=== PATIENT | female | born 1940 | race Caucasian/White ===

== ENCOUNTER 2017-09-23 12:43 | Day surgery (SDC) | payer MEDICARE, BC ==
[2017-09-22 08:52] VITALS: BMI 24.2
[~2017-09-23 12:43] MED LIST: Cyclopentolate 1% Opth Drop 2 ML BOT FS SCH; EPINEPHrine 0.3 MG in Ophthalmic Irrigation Solution 500 ML FS SCH; Phenylephrine 2.5% Ophth Soln 5 ML BOT FS SCH
[2017-09-23] MEDS ORDERED: Phenylephrine 2.5% Ophth Soln 5 ML BOT ONE (13:46)
[2017-09-23] MEDS ORDERED: Cyclopentolate 1% Opth Drop 2 ML BOT ONE (13:46)
[2017-09-23] MEDS ORDERED: Ondansetron HCl/PF 4 MG/2 ML Vial ONE ×2 (14:36→14:45)
[2017-09-23] MEDS ORDERED: Fentanyl 100 MCG/2 ML VIAL ONE (14:36)
[2017-09-23] MEDS ORDERED: Diprivan 20 ML ONE (14:36)
[2017-09-23] MEDS ORDERED: Midazolam HCl 2 mg/2 ml Vial ONE (14:36)
[2017-09-23] MEDS ORDERED: Lidocaine 2% MPF 10 ML AMP (For Epidural Use) ONE (14:45)
[2017-09-23] MEDS ORDERED: Propofol 200 MG/20 ML VIAL ONE (14:45)
--- NOTE | 2017-09-23 19:10 | OP ---
DATE OF PROCEDURE: 09/23/2017 PREOPERATIVE DIAGNOSIS: Vitreous opacification, dislocated intraocular lens, left eye. POSTOPERATIVE DIAGNOSIS: Vitreous opacification, dislocated intraocular lens, left eye. PROCEDURE PERFORMED: Pars plana vitrectomy, repositioning of intraocular lens with suture, left eye . SURGEON: Jesse Newman M.D. ANESTHESIA: General endotracheal anesthesia. COMPLICATIONS: None. PROCEDURE IN DETAIL: The patient was identified in the preoperative holding area. Appropriate info rmed consent for the planned surgical procedure on the left eye had been obtained. The patient was transported to the operative suite where appropriate cardiopulmonary monitoring was established. Lo zita anesthesia was obtained using retrobulbar and modified Van Lint lid block using 50/50 mixture of 4% lidocaine and 0.75% bupivacaine. The patient was prepped and draped in the usual sterile manner for ophthalmic surgery on the left eye. Lid speculum was placed in the left eye. The 25-gauge tro cars were placed in conjunctiva and sclera supratemporally, inferotemporally, and supranasally. Inf usion line was placed inferotemporally. Light pipe and vitreous cutter were inserted into the eye. Core of vitrectomy was performed. Special attention was taken to the anterior vitreous, which was cleared from lens surfaces. The lens was then positioned into the anterior chamber. Lens was tethe red superiorly prevented centering of the lens. One single suture was placed through the iris and a round the inferior haptic. The superior conjunctiva was then explored revealing the externalized benjamin ptic superiorly. This was repositioned back into the eye itself. The optic was centered in the pup il and the superior haptic was sutured to the iris. Both sutures were tied internal to the eye and trimmed using internal end-gripping scissors. The haptic was then repositioned in the posterior sandor mber and noted to be centered. Prophylactic laser was placed behind the sclerotomy sites. Trocars were removed. Eye was noted to retain pressure well. A single 6-0 plain gut suture was placed at t he superior conjunctival peritomy site. Subconjunctival Ancef was placed and antibiotic ointment wa s placed, and the eye was patched and shielded. The patient was taken to the postoperative recovery unit in good condition having suffered no immediate perioperative complications. DISCHARGE INSTRUCTIONS: The patient was instructed to keep patch and shield on, avoid lifting or be nding, avoid rubbing the eye and follow up in the morning with Dr. Newman.
--- OUTSIDE RECORDS SUMMARY | 2017-09-24 15:50 | XMS | Continuity of Care Document ---
:1940 Author Organization [facility] Care Team Providers Name Role Phone Carola Oneill Primary Care Physician Unavailable Insurance Providers Payer Name Policy Number Subscriber Name Relationship MEDICARE [id number] JOSSUE GOMEZ SELF/SAME PATIENT [facility] [id number] MAYA GOMEZ Advance Directives Directive Response Recorded Date/Time Advance Directive? N 02/19/17 3:26pm Living Will? N 02/19/17 3:26pm Health Care Proxy? N 02/19/17 3:26pm Healthcare Power of Physician Representative? N 02/19/17 3:26pm Is the patient an Organ Donor? N 02/19/17 3:26pm Problems Active Medical Problems Problem Onset Date Recorded Date Status Pneumonia Unknown 08/09/16 Active Hypoxemia Unknown 08/09/16 Active Hyponatremia Unknown 08/10/16 Active CAD (coronary artery disease) Unknown 08/10/16 Active Pacemaker Unknown 08/10/16 Active HBP (high blood pressure) Unknown 08/10/16 Active HLD (hyperlipidemia) Unknown 08/10/16 Active Medications Current Home Medications Medication Dose Units Route Directions Days/Qty Instructions Start Date Calcium Carbonate 600 MG PO TWICE A DAY (Calcium) 600 MG (899; 2099) TAB Carvedilol (COREG 25 MG PO TWICE A DAY 25 MG TAB) 25 MG (899; 2099) TAB Clopidogrel 75 MG PO EVERY DAY @ 0900 Bisulfate (Plavix) 75 MG TAB Cyclosporine 1 DROP OP TWICE A DAY (Restasis) 2 (00; 2099) DROP/0.4 ML DROP Isosorbide 60 MG PO EVERY DAY @ 0900 Mononitrate (Imdur) 60 MG TAB Levothyroxine 88 MCG PO EVERY DAY @ 0900 Sodium (SYNTHROID 0.88 MG TAB) 88 MCG TAB Echo-3 Fatty Acids 1,000 MG PO TWICE A DAY (OMEGA 3 1,000 MG (00; 2100) CAP) 1,000 MG CAP Rivaroxaban 20 MG PO EVERY DAY @ 0900 (Xarelto) 20 MG TAB TELMISARTAN 40 MG PO EVERY DAY @ 0900 (TELMISARTAN 40 MG TAB) 40 MG TAB Tolterodine 2 MG PO DAILY HOUR OF Tartrate (DETROL 2 SLEEP MG TAB) 2 MG TAB Past Home Medications Medication Directions Ordered Status Amiodarone 200MG (Cordarone 200 Mg EVERY DAY @ 0900 Unknown Discontinued Tab) 200 Mg Tab Tab, 200 Mg Po Amiodarone 200MG (Cordarone 200 Mg Unknown Discontinued Tab) 200 Mg Tab Tab, 200 Mg Or Amlodipine Besylate (Norvasc 5 Mg EVERY DAY @ 0900 Unknown Discontinued Tab) 5 Mg Tab Tab, 5 Mg Or Atorvastatin Calcium (Lipitor 40 Mg EVERY DAY @ 0900 Unknown Discontinued Tab) 40 Mg Tab Tab, 40 Mg Po Atorvastatin Calcium (Lipitor 40 Mg AT BEDTIME (2099) Unknown Discontinued Tab) 40 Mg Tab Tab, 40 Mg Po Atorvastatin Calcium (Lipitor) 40 Mg EVERY DAY @ 0900 Unknown Discontinued Tab Tab, 40 Mg Po Calcium Carbonate-Vitamin D (Calcium TWICE A DAY (899; 2099) Unknown Discontinued 600 + D) 600 Mg Tab Tab, 1 Or Carvedilol (Carvedilol 12.5 Mg Tab) TWICE A DAY (00; 2099) Unknown Discontinued 12.5 Mg Tab Tab, 12.5 Mg Po Carvedilol (Coreg) 6.25 Mg Tab Tab, 2 X A DAY Unknown Discontinued 6.25 Mg Or Clonidine Hydrochloride (Clonidine THREE TIME A DAY(;15;) Unknown Discontinued 0.1 Mg Tab) 0.1 Mg Tab Tab, 0.1 Mg PRN HYPERTENSION Po Clopidogrel Bisulfate (Plavix 75 Mg EVERY DAY @ 0900 Unknown Discontinued Tab) 75 Mg Tab Tab, 75 Mg Or Estradiol (Vivelle-Dot) 0.05 Mg Dis Q 4 DAYS Unknown Discontinued Dis, 0.05 Mg Td Furosemide (Lasix 20 Mg Tab) 20 Mg PRN DYSURIA Unknown Discontinued Tab Tab, 20 Mg Or Furosemide (Lasix 20 Mg Tab) 20 Mg EVERY DAY @ 0900 Unknown Discontinued Tab Tab, 20 Mg Or Hydrochlorothiazide W/Triamter EVERY DAY @ 0900 Unknown Discontinued (Triamterene/Hydrochlorothiazide) 37.5 Mg/25 Mg Tab Tab, 1 Tab Po Hydrocodone-Acetaminophen (Nova 7.5 EVERY SIX HOURS NEEDED Unknown Discontinued Mg/325 Mg Tab) 7.5 Mg/325 Mg Tab PRN PAIN Tab, 1 Tab Po Lisinopril (Lisinopril 10 Mg Tab) 10 TWICE A DAY (899; 2099) Unknown Discontinued Mg Tab Tab, 10 Mg Po Lisinopril (Zestril 30 Mg) 30 Mg Tab EVERY DAY @ 0900 Unknown Discontinued Tab, 30 Mg Po Levothyroxine Sodium (Levothyroxin) EVERY DAY @ 0900 Unknown Discontinued 88 Mcg Tab Tab, 88 Mcg Or Lisinopril (Zestril 10MG) 10 Mg Tab TWICE A DAY (899; 2099) Unknown Discontinued Tab, 10 Mg Po Multiple Vitamin (Multivitamin) Tab EVERY DAY @ 0900 Unknown Discontinued Tab, 1 Or Multiple Vitamins W/ Minerals (Mult EVERY DAY @ 0900 Unknown Discontinued Vitamin) Tab Tab, 1 Po Rivaroxaban (Xarelto) 20 Mg Tab Tab, AT BEDTIME (2099) Unknown Discontinued 20 Mg Or Social History Problem Response Recorded Date Recreational drugs? N 08/10/16 Alcohol? N 08/10/16 Query Response Start Date Stop Date Smoking Status: Never Smoker Hospital Discharge Instructions No hospital discharge instructions. Plan of Care No plan of care. Functional Status No functional status results. Allergies, Adverse Reactions, Alerts Allergen Type Severity Reaction Status Last Updated Amiodarone AdvReac Severe RESPIRATORY DISTRESS POSSIBLY RELATED Active TO AMIODARONE Immunizations No Known History of Immunizations. Vital Signs Vital Reading Collection Date/Time Result Respiratory Rate 08/19/16 10:00am 20 Results No known relevant diagnostic tests, laboratory data and/or discharge summary. Procedures No Known History of Procedures. Encounters Encounter Location Arrival/Admit Date Discharge/Depart Date Attending Provider Discharged [place] 01/22/17 3:48pm 02/19/17 3:26pm [facility] Discharged [place] 01/22/17 3:48pm 02/19/17 3:26pm [facility] Discharged [place] 01/22/17 3:48pm 02/19/17 3:26pm [place], [facility] Discharged [place] 01/22/17 3:48pm 02/19/17 3:26pm [place], [facility] Discharged [place] 01/22/17 3:48pm 02/19/17 3:26pm [place], [facility] Discharged [place] 01/22/17 3:48pm 02/19/17 3:26pm [place], [facility] Discharged [place] 01/22/17 3:48pm 02/19/17 3:26pm [place], [facility] Discharged [place] 01/22/17 3:48pm 02/19/17 3:26pm [place], [facility] Discharged [place] 12/23/16 4:41pm 01/19/17 4:24pm [place], [facility] Discharged [place] 12/23/16 4:41pm 01/19/17 4:24pm [place], [facility] Discharged [place] 12/23/16 4:41pm 01/19/17 4:24pm [place], [facility] Discharged [place] 12/23/16 4:41pm 01/19/17 4:24pm [place], [facility] Discharged [place] 12/23/16 4:41pm 01/19/17 4:24pm [place], [facility] Discharged [place] 12/23/16 4:41pm 01/19/17 4:24pm [place], [facility] Discharged [place] 12/23/16 4:41pm 01/19/17 4:24pm [place], [facility] Discharged [place] 12/23/16 4:41pm 01/19/17 4:24pm [place], [facility] Discharged [place] 12/23/16 4:41pm 01/19/17 4:24pm [place], [facility] Registered [place] 12/28/16 11:06am [place], [facility] Discharged [place] 12/23/16 4:41pm 01/19/17 4:24pm [place], [facility] Discharged [place] 12/23/16 4:41pm 01/19/17 4:24pm [place], [facility] Discharged [place] 11/25/16 2:03pm 12/22/16 4:39pm [place], [facility] Discharged [place] 11/25/16 2:03pm 12/22/16 4:39pm [place], [facility] Discharged [place] 11/25/16 2:03pm 12/22/16 4:39pm [place], [facility] Discharged [place] 11/25/16 2:03pm 12/22/16 4:39pm [place] Discharged [place] 11/25/16 2:03pm 12/22/16 4:39pm [place], [facility] Discharged [place] 11/25/16 2:03pm 12/22/16 4:39pm [place], [facility] Discharged [place] 11/25/16 2:03pm 12/22/16 4:39pm [place], [facility] Discharged [place] 11/25/16 2:03pm 12/22/16 4:39pm [place], [facility] Discharged [place] 11/25/16 2:03pm 12/22/16 4:39pm [place], [facility] Discharged [place] 11/25/16 2:03pm 12/22/16 4:39pm [place], [facility] Discharged [place] 11/25/16 2:03pm 12/22/16 4:39pm [place], [facility] Discharged [place] 11/25/16 2:03pm 12/22/[facility] [place] Diagnosis Onset Date Pneumonia Hypoxemia Hyponatremia CAD (coronary artery disease) Pacemaker HBP (high blood pressure) HLD (hyperlipidemia)
--- OUTSIDE RECORDS SUMMARY | 2017-09-24 15:50 | XMS | Continuity of Care Document ---
:[address] [facility] Care Team Providers Name Role Phone Mai Carola Primary Care Physician Unavailable Insurance Providers Payer Name Policy Number Subscriber Name Relationship MEDICARE [id number] JOSSUE GOMEZ SELF/SAME PATIENT [facility] [id number] MAYA GOMEZ Advance Directives Directive Response Recorded Date/Time Advance Directive? N 08/10/16 8:23am Living Will? N 08/10/16 8:23am Health Care Proxy? N 08/10/16 8:23am Healthcare Power of Settlement Technician? N 08/10/16 8:23am Is the patient an Organ Donor? N 08/09/16 9:31pm Chief Complaint and Reason for Visit Reason for Visit HYPOXEMIA,PNEUMONIA Problems Active Medical Problems Problem Onset Date [...] PO TWICE A DAY (Calcium) 600 MG (0900; 2099) TAB Carvedilol (COREG 25 MG PO TWICE A DAY 25 MG TAB) 25 MG (00; 2099) TAB Clopidogrel 75 MG PO EVERY DAY @ 0900 Bisulfate (Plavix) 75 MG TAB Cyclosporine 1 DROP OP TWICE A DAY (Restasis) 2 (899; 2099) DROP/0.4 ML DROP Isosorbide 60 MG PO EVERY DAY @ 0900 Mononitrate (Imdur) 60 MG TAB Levothyroxine 88 MCG PO EVERY DAY @ 0900 Sodium (Synthroid 88 Mcg) 88 MCG TAB [place]-3 Fatty Acids 1,000 MG PO TWICE A DAY (OMEGA 3 1,000 MG (899; 2099) CAP) 1,000 MG CAP Rivaroxaban 20 MG PO EVERY DAY @ 0900 (Xarelto) 20 MG TAB TELMISARTAN 40 MG 40 MG PO EVERY DAY @ 0900 TAB Tolterodine 2 MG PO DAILY HOUR [...] Calcium Carbonate-Vitamin D (Calcium TWICE A DAY (00; 2099) Unknown Discontinued 600 + D) 600 Mg Tab Tab, 1 Or Carvedilol (Carvedilol 12.5 Mg Tab) TWICE A DAY (899; 2099) Unknown Discontinued 12.5 Mg Tab Tab, [...] Mg Tab Tab, 1 Tab Po Hydrocodone-Acetaminophen ([place] 7.5 EVERY SIX HOURS NEEDED Unknown Discontinued Mg/325 Mg Tab) 7.5 Mg/325 Mg Tab PRN PAIN Tab, 1 Tab Po Lisinopril (Lisinopril 10 Mg Tab) 10 TWICE A DAY (09; 2099) Unknown Discontinued Mg Tab Tab, 10 [...] No hospital discharge instructions. Plan of Care Discharge Date 08/17/16 Disposition OTHER ACUTE CARE FACILITY Prescriptions See Medications Section Functional Status Query Response Date Recorded Speech Pattern: Intubated August 12, 2016 7:30pm Seizure Act.? N August 13, 2016 9:00am RUE Strength: Weak August 13, 2016 9:00am LUE Strength: Weak August 13, 2016 9:00am RLE Strength: Weak August 13, 2016 9:00am LLE Strength: Weak August 13, 2016 9:00am WNL?+ Y August 17, 2016 8:00am Person: N August 13, 2016 9:00am Place: N August 13, 2016 9:00am Time: N August 13, 2016 9:00am Situation: N August 13, 2016 9:00am LOC: Sedated August 13, 2016 9:00am Allergies, Adverse Reactions, Alerts Allergen Type Severity Reaction Status Last Updated Amiodarone AdvReac Severe RESPIRATORY DISTRESS POSSIBLY RELATED Active TO AMIODARONE Immunizations No Known History of Immunizations. Vital Signs Vital Reading Collection Date/Time Result Blood Pressure 08/17/16 6:00pm 132/61 Blood Pressure Source 08/17/16 6:00pm Auto Cuff Patient Temperature 08/17/16 4:00pm 97.7 Temperature Source 08/17/16 4:00pm Oral Respiratory Rate 08/17/16 6:00pm 26 Pulse Rate 08/17/16 6:00pm 62 Pulse Location 08/17/16 6:00pm Monitor Bedside Pulse Oximetry 08/17/16 6:00pm 89 Height 08/17/16 3:41pm 170.18 cm Height 08/17/16 3:41pm 5 ft 7.00 in Weight 08/17/16 3:41pm 71.300 kg Weight 08/17/16 3:41pm 157 lb 3.03 oz Body Mass Index 08/17/16 3:41pm 24.6 Results Laboratory Results Test Name Result Units Flags Reference Collection Result Comments Date/Time Date/Time Glucose 313 mg/dL H 70-109 08/17/16 08/17/16 (Fingerstick 12:20pm 6:36pm ) White Blood 12.9 K/uL H 4.8-10.8 08/17/16 08/17/16 Count 3:30am 4:05am Red Blood 3.58 M/uL L 3.70-5.40 08/17/16 08/17/16 Count 3:30am 4:05am Hemoglobin 12.4 g/dL 12.0-16.0 08/17/16 08/17/16 3:30am 4:05am Hematocrit 36.2 % L 37.0-47.0 08/17/16 08/17/16 3:30am 4:05am Mean 101.3 fl H 80.0-100.0 08/17/16 08/17/16 Corpuscular 3:30am 4:05am Volume Mean 34.6 pg H 27.0-31.0 08/17/16 08/17/16 Corpuscular 3:30am 4:05am Hemoglobin Mean 34.2 g/dL 32.0-36.0 08/17/16 08/17/16 Corpuscular 3:30am 4:05am Hgb Concent Diff Red Cell 14.1 % 11.5-14.5 08/17/16 08/17/16 Distribution 3:30am 4:05am Width Platelet 274 K/uL 130-400 08/17/16 08/17/16 Count 3:30am 4:05am Mean 8.4 fl 08/17/16 08/17/16 Platelet 3:30am 4:05am Volume Granulocytes 94.3 % H 50.0-75.0 08/17/16 08/17/16 (%) 3:30am 4:05am Lymphocytes 3.0 % L 20.0-40.0 08/17/16 08/17/16 % 3:30am 4:05am Monocytes % 2.4 % 0.0-15.0 08/17/16 08/17/16 3:30am 4:05am Eosinophils 0.0 % 0.0-10.0 08/17/16 08/17/16 % 3:30am 4:05am Basophils % 0.3 % 0.0-2.0 08/17/16 08/17/16 3:30am 4:05am Granulocytes 12.2 K/uL H 1.8-6.4 08/17/16 08/17/16 # 3:30am 4:05am Lymphocytes 0.4 K/uL L 1.2-3.6 08/17/16 08/17/16 # 3:30am 4:05am Monocytes # 0.3 K/uL 0.3-0.9 08/17/16 08/17/16 3:30am 4:05am Eosinophils 0.0 K/ul 0.0-0.5 08/17/16 08/17/16 # 3:30am 4:05am BASO # 0.0 K/uL 0.0-0.2 08/17/16 08/17/16 3:30am 4:05am Manual YES 08/17/16 08/17/16 Differential 3:30am 4:05am Segmented 95 % H 42-75 08/17/16 08/17/16 Neutrophils 3:30am 5:28am Band 1 % L 2-10 08/17/16 08/17/16 Neutrophils 3:30am 5:28am Lymphocytes 2 % L 20-51 08/17/16 08/17/16 3:30am 5:28am Monocytes 2 % 2-9 08/17/16 08/17/16 3:30am 5:28am Platelet ADEQUATE ADEQUATE 08/17/16 08/17/16 Estimate 3:30am 5:28am Platelet LARGE NORMAL 08/17/16 08/17/16 Morphology PLATELETS 3:30am 5:28am SEEN Normal RBC SEE NORMAL 08/17/16 08/17/16 Morphology MORPHOLOGY 3:30am 5:28am Poikilocytos 1+ A NONE 08/17/16 08/17/16 is 3:30am 5:28am Anisocytosis 1+ A NONE 08/17/16 08/17/16 3:30am 5:28am Sodium Level 139 mmol/L 135-144 08/17/16 08/17/16 3:30am 4:15am Potassium 3.5 mmol/L 3.5-5.1 08/17/16 08/17/16 Level 3:30am 4:15am Chloride 98 mmol/L L 101-111 08/17/16 08/17/16 Level 3:30am 4:15am Carbon 33 mmol/L H 22-32 08/17/16 08/17/16 Dioxide 3:30am 4:15am Level Anion Gap 11.5 mmol/L 10-20 08/17/16 08/17/16 3:30am 4:15am Glucose 233 mg/dL H 70-109 08/17/16 08/17/16 Random glucose > 200 mg/dL in a patient with typical Level 3:30am 4:15am symptoms of diabetes (polydipsia, polyuria and unexplained weight loss) satisfies ADA criteria for diabetes mellitus if confirmed by repeat testing on another day. Confirmation is unnecessary when acute metabolic decompensation with hyperglycemia is manifested. Reference: Report of the Expert Committee on the Diagnosis and Classification of Diabetes Mellitus. Diabetes Care, 20:1183, 1997. Blood Urea 27 mg/dL H 8-26 08/17/16 08/17/16 Nitrogen 3:30am 4:15am Creatinine 0.90 mg/dL 0.44-1.00 08/17/16 08/17/16 3:30am 4:15am EGFR Note > 60.0 08/17/16 08/17/16 eGFR (Estimated Glomerular Filtration Rate) 3:30am 4:15am Reference Range: >60 ml/min/1.73m eGFR calculation value obtained using the [facility] Quadratic (MCQ) equation. The reportable reference range is recommended to be greater than 60 ml/min/1.73m. This is an estimation of the patient's GFR and clinical correlation is recommended. This eGFR calculation does not account for race. This result may differ from other equations available. Calcium 7.6 mg/dL L 8.9-10.3 08/17/16 08/17/16 Level 3:30am 4:15am Magnesium 2.1 mg/dL 1.8-2.5 08/17/16 08/17/16 Level 3:30am 4:15am Eosinophils 3 % 1-4 08/16/16 08/16/16 7:16am 9:36am Metamyelocyt 3 % H 0 08/16/16 08/16/16 es 7:16am 9:36am Phosphorus 3.4 mg/dL 2.5-4.6 08/16/16 08/16/16 Level 7:16am 8:19am Vancomycin 13 ug/mL 10-15 08/15/16 08/15/16 Level Trough 12:20pm 12:41pm Atypical 1 H NONE 08/15/16 08/15/16 Lymphocytes 3:40am 5:09am Hypochromasi 1+ A NONE 08/15/16 08/15/16 a 3:40am 5:09am Macrocytosis 1+ A NONE 08/15/16 08/15/16 3:40am 5:09am B-Type 307 pg/mL H 0-100 08/15/16 08/15/16 Natriuretic 3:40am 4:48am Peptide Random 11 ug/mL 08/14/16 08/14/16 Vancomycin 3:30am 8:35am Level Urine Negative Negative 08/12/16 08/16/16 [facility]formed [facility]: [facility] Legionella 6:45am 5:50pm [address], [place] [id number] pneumophilia Vehicle Maintenance Technician: Ulises Mendoza MD, Phone: [phone] Ag Aspergillus Negative Neg:<1:1 08/12/16 08/16/16 fumigatus 6:45am 5:50pm Antibody Aspergillus Negative Neg:<1:1 08/12/16 08/16/16 flavus 6:45am 5:50pm Antibody Aspergillus Negative Neg:<1:1 08/12/16 08/16/16 niger 6:45am 5:50pm Antibody Blastomyces Negative Neg:<1:1 08/12/16 08/16/16 Antibody 6:45am 5:50pm Coccidioides Negative Neg:<1:1 08/12/16 08/16/16 Antibody 6:45am 5:50pm Histoplasma Negative Neg:<1:1 08/12/16 08/16/16 Antibody 6:45am 5:50pm Albumin 2.2 g/dL L 3.5-5.0 08/12/16 08/12/16 3:43am 4:54am Total 0.5 mg/dL 0.3-1.2 08/12/16 08/12/16 Bilirubin 3:43am 4:54am Alkaline 56 IU/L 32-91 08/12/16 08/12/16 Phosphatase 3:43am 4:54am Total 5.5 g/dL L 6.5-8.1 08/12/16 08/12/16 Protein 3:43am 4:54am Alanine 34 IU/L 7-55 08/12/16 08/12/16 Aminotransfe 3:43am 4:54am rase (ALT/SGPT) Aspartate 33 IU/L 15-41 08/12/16 08/12/16 Amino Transf 3:43am 4:54am (AST/SGOT) Globulin 3.3 g/dL 2.3-3.5 08/12/16 08/12/16 3:43am 4:54am Albumin/Glob 1.0 L 1.2-2.2 08/12/16 08/12/16 ulin Ratio 3:43am 4:54am Erythrocyte 85 mm/hr H 0-30 08/11/16 08/11/16 Sedimentatio 1:25pm 6:02pm n Rate C-Reactive 33.0 MG/DL H 0.0-1.0 08/11/16 08/11/16 Protein 1:25pm 5:57pm N/A Negative Negative 08/11/16 08/12/16 Performed at: - [facility] [place] 1:25pm 3:27pm [address], [place] [id number] Vehicle Maintenance Technician: Андрей Hopson MD, Phone: [phone] Influenza NEGATIVE NEGATIVE 08/11/16 08/11/16 A negative test result should be interpreted as a Type A 12:35pm 1:33pm presumptive negative for the presense of influenza A Antigen antigen. Negative results can occur from inadequate sample collection or levels of antigen which fall below the limits of detection of the test. Influenza NEGATIVE NEGATIVE 08/11/16 08/11/16 Type B 12:35pm 1:33pm Antigen Respiratory Resp Virus Panel (RVP) PCR 08/11/16 08/17/16 Viral Panel Influenza A Negative Negative 6: 00pm 8:05am (PCR) Influenza B Negative Negative RSV A Negative Negative RSV B Negative Negative Parainfluenza 1 Negative Negative Parainfluenza 2 Negative Negative Parainfluenza 3 Negative Negative Rhinovirus Negative Negative Metapneumovirus Negative Negative Adenovirus Negative Negative [address] [facility] [address] [address] Dir: Ulises Mendoza MD For inquiries, the physician may contact Branch: [phone] Lab: [phone] Urine Color YELLOW YELLOW 08/10/16 08/10/16 5:00pm 5:22pm Urine CLEAR CLEAR 08/10/16 08/10/16 Appearance 5:00pm 5:22pm Urine 250 mg/dL A NEGATIVE 08/10/16 08/10/16 Glucose 5:00pm 5:22pm Urine NEGATIVE NEGATIVE 08/10/16 08/10/16 Bilirubin 5:00pm 5:22pm Urine TRACE A NEGATIVE 08/10/16 08/10/16 Ketones 5:00pm 5:22pm Urine 1.020 1.002-1.03 08/10/16 08/10/16 Specific 0 5:00pm 5:22pm [place] Urine Blood LARGE A NEGATIVE 08/10/16 08/10/16 5:00pm 5:22pm Urine pH 6.5 4.5-8.0 08/10/16 08/10/16 5:00pm 5:22pm Urine NEGATIVE mg/dL NEGATIVE 08/10/16 08/10/16 Protein 5:00pm 5:22pm Urine 1.0 E.U./dL 0.2 08/10/16 08/10/16 Urobilinogen 5:00pm 5:22pm Urine NEGATIVE NEGATIVE 08/10/16 08/10/16 Nitrite 5:00pm 5:22pm Urine NEGATIVE NEGATIVE 08/10/16 08/10/16 Leukocyte 5:00pm 5:22pm Esterase Urine YES NO 08/10/16 08/10/16 Microscopic 5:00pm 5:22pm Indicated Urine RBC 6-14 /hpf A 0-2 08/10/16 08/10/16 5:00pm 5:23pm Urine WBC NONE SEEN /hpf 0-2 08/10/16 08/10/16 5:00pm 5:23pm Urine 0-2 /hpf 0-2 08/10/16 08/10/16 Epithelial 5:00pm 5:23pm Cells Urine NEGATIVE /hpf NEG 08/10/16 08/10/16 Bacteria 5:00pm 5:23pm Urine Sodium 34 mmol/L 08/10/16 08/10/16 Published 5:00pm 5:30pm reference range is not available. Urine Uric 31.0 mg/dL 08/10/16 08/10/16 Published Acid 5:00pm 5:30pm reference range is not available. Urine 68.0 mmol/L 08/10/16 08/10/16 Published Chloride 5:00pm 5:30pm reference range is not available. Urine 50.70 mg/dL 08/10/16 08/10/16 Published Creatinine 5:00pm 5:30pm reference range is not available. Serum 265 L 280-301 08/10/16 08/12/16 INFCE Result Units: mOsmol/kg Osmolality 1:20pm 7:32am Performed at: - [facility] [address], [place], [place] [id number] Vehicle Maintenance Technician: ARMIDA Davis MD, Phone: [phone] Thyroid 3.37 uIU/mL 0.34-5.6 08/10/16 08/10/16 Stimulating 11:29am 12:24pm Hormone (TSH) Prothrombin 23.6 SECONDS H 10.0-12.9 08/09/16 08/09/16 Time 9:20pm 9:54pm INR 2.2 08/09/16 08/09/16 Internationa 9:20pm 9:54pm THE INR IS TO BE USED ONLY FOR MONITORING ORAL ANTICOAGULANT l Normalized THERAPY. Ratio INDICATION INR VALUE 1. Prophylaxis of venous thrombosis 2.0-3.0 (high-risk surgery) Treatment of venous thrombosis Treatment of PE Prevention of systemic embolism Tissue heart valves AMI (to prevent systemic embolism) Valvular heart disease Atrial fibrillation Bileaflet mechanical valve in aortic position 2. Mechanical prosthetic heart valves (high risk) 2.5-3.5 Thrombosis and Antiphospholipid syndrome Prevention of recurrent [facility] Sixth ACCP Consensus Conference on Antithrombotic Therapy, Chest 2001; 119:Supplement 8-21. Arterial 7.470 H 7.350-7.45 08/09/16 08/09/16 Blood pH 0 9:20pm 9:44pm Blood Gas 30.7 mmHg L 32.0-48.0 08/09/16 08/09/16 PCO2 9:20pm 9:44pm Blood Gas 22.2 mmol/l 20.0-24.0 08/09/16 08/09/16 HCO3 9:20pm 9:44pm Arterial 20.0 mmol/L L 21.0-25.0 08/09/16 08/09/16 Blood Total 9:20pm 9:44pm CO2 Blood Gas -1.0 mmol/L -2.0-2.0 08/09/16 08/09/16 Base Excess 9:20pm 9:44pm Blood Gas 63.0 mmHg L 83.0-108.0 08/09/16 08/09/16 PO2 9:20pm 9:44pm Arterial Bld 94.9 L 95.0-99.0 08/09/16 08/09/16 O2 9:20pm 9:44pm Saturation (Measur) [place] Test YES 08/09/16 08/09/16 9:20pm 9:44pm Blood Gas LEFT BRACHIAL 08/09/16 08/09/16 Puncture 9:20pm 9:44pm Site Creatine 174 IU/L 38-234 08/09/16 08/09/16 Kinase 9:20pm 10:16pm Lactic Acid 1.8 mmol/L 0.5-2.0 08/09/16 08/09/16 Level 9:20pm 10:05pm Creatine 3.6 ng/ML 0.6-6.3 08/09/16 08/09/16 Kinase MB 9:20pm 10:16pm Troponin I < 0.01 ng/mL 0.00-0.03 08/09/16 08/09/16 9:20pm 10:16pm Troponin I-Interpretation Reference : <0.03 ng/mL NEGATIVE 0.04 - 0.49 ng/mL EQUIVOCAL =OR > 0.5 ng/mL CONSISTENT WITH ACUTE MYOCARDIAL INJURY 98% of confirmed AMI patients will have at least one value in a set or serial specimens >0.50 ng/ml. 99% of normals are between 0.0 - 0.10 ng/ml. Serial samples on a patient that are all <0.10 ng/ml effectively rules out AMI. Persistently increased troponin I values that are above the upper limit of normal but below the threshold for AMI indicate mycardial injury but not necessarily an ischemic mechanism of injury. Troponin Important Points 1. Troponin is specific for myocardial injury but not for AMI. Elevated troponin levels above the upper limit of normal but below the AMI cutoff may be present in cardiac injury other then AMI and represent some degree of risk. 2. Elevated troponin levels inconsistent with patient history or clinical condition should be considered a sign to investigate for other cardiac conditions. 3. Serial sampling is critical for accurate diagnosis. Myoglobin 94 ug/mL H 14.3-65.8 08/09/16 08/09/16 9:20pm 10:16pm Creatinine 1.00 mg/dL 0.44-1.00 07/21/16 07/21/16 1:21pm 1:34pm EGFR Note > 60.0 07/21/16 07/21/16 eGFR (Estimated Glomerular Filtration Rate) 1:21pm 1:34pm Reference Range: >60 ml/min/1.73m eGFR calculation value obtained using the MDRD equation. The reportable reference ranges is recommended to be greater than 60 ml/min/1.73m. This is an estimation of the patient's GFR and clinical correlation is recommended. Microbiology Results Procedure Source Result Collection Date/Time Result Date/Time Blood Culture Blood NO GROWTH AT 5 DAYS. 08/09/16 9:30pm 08/15/16 6:59am Blood Culture Blood NO GROWTH AT 5 DAYS. 08/09/16 9:20pm 08/15/16 6:59am Procedures No Known History of Procedures. Encounters Encounter Location Arrival/Admit Date Discharge/Depart Date Attending Provider Discharged [place] 08/09/16 8:56pm 08/17/16 6:35pm [facility], Inpatient [facility] Discharged [place] 08/09/16 8:56pm 08/17/16 6:35pm Anne, Emergency [facility] Registered [place] 08/03/16 1:31pm Mai, [facility] Registered [place] 07/21/16 12:48pm [facility], [facility] Registered [place] 06/30/16 7:46am [facility], [facility] Encounter Diagnosis Onset Date Pneumonia Hypoxemia Hyponatremia CAD (coronary artery disease) Pacemaker HBP (high blood pressure) HLD (hyperlipidemia)
--- OUTSIDE RECORDS SUMMARY | 2017-09-24 15:50 | XMS | Continuity of Care Document ---
:1940 Author Organization [facility] Care Team Providers Name Role Phone Carola Oneill Primary Care Physician Unavailable Insurance Providers Payer Name Policy Number Subscriber Name Relationship MEDICARE [id number] JOSSUE GOMEZ SELF/SAME PATIENT [facility] [place] [id number] MAYA GOMEZ Advance Directives Directive Response Recorded Date/Time Advance Directive? N 12/22/16 4:39pm Living Will? N 12/22/16 4:39pm Health Care Proxy? N 12/22/16 4:39pm Healthcare Power of Operations Management Trainee? N 12/22/16 4:39pm Is the patient an Organ Donor? N 12/22/16 4:39pm Problems Active Medical Problems Problem Onset Date [...] (SYNTHROID 0.88 MG TAB) 88 MCG TAB [place]-3 Fatty Acids 1,000 MG PO TWICE A [...] Mg Tab Tab, 1 Tab Po Hydrocodone-Acetaminophen ([place] 7.5 EVERY SIX HOURS NEEDED Unknown Discontinued [...] Arrival/Admit Date Discharge/Depart Date Attending Provider Discharged [place] 11/25/16 2:03pm 12/22/16 4:39pm DEN[place], [facility] Discharged [place] 11/25/16 2:03pm 12/22/16 4:39pm [facility] Discharged [place] 11/25/16 2:03pm 12/22[facility]16 [facility] [place] 11[facility]25/16 2:03[facility] [place] 11/25/16 2:03pm 12/22[facility] [place] 11/25/16 2:03pm 12/22[facility] [place] 11/25/16 2:03pm 12/22/[facility] [place] 11/25/16 2:03pm [facility]/22[facility] [place] [facility]25[facility] 2:03[facility] [place] 11/25/16 2:03pm 12/22[facility] [place] 11/25/16 2:03pm 12/22[facility] [place] 11/25/16 2:03pm 12/22/16 4:39pm [facility] Registered [place] [facility] Encounter Diagnosis Onset Date Pneumonia Hypoxemia Hyponatremia CAD (coronary artery disease) Pacemaker HBP (high blood pressure) HLD (hyperlipidemia)
--- OUTSIDE RECORDS SUMMARY | 2017-09-24 15:50 | XMS | Continuity of Care Document ---
:1940 Author Organization [facility] Care Team Providers Name Role Phone Carola Oneill Primary Care Physician Unavailable Insurance Providers Payer Name Policy Number Subscriber Name Relationship MEDICARE [id number] JOSSUE GOMEZ SELF/SAME PATIENT [facility] [id number] MAYA GOMEZ Advance Directives Directive Response Recorded Date/Time Advance Directive? N 01/19/17 4:24pm Living Will? N 01/19/17 4:24pm Health Care Proxy? N 01/19/17 4:24pm Healthcare Power of Telemarketing Manager? N 01/19/17 4:24pm Is the patient an Organ Donor? N 01/19/17 4:24pm Problems Active Medical Problems Problem Onset Date [...] (SYNTHROID 0.88 MG TAB) 88 MCG TAB [place]-3 Fatty Acids 1,000 MG PO TWICE A [...] Mg Tab Tab, 1 Tab Po Hydrocodone-Acetaminophen ([place] 7.5 EVERY SIX HOURS NEEDED Unknown Discontinued [...] Arrival/Admit Date Discharge/Depart Date Attending Provider Discharged [place] 12/23/16 4:41pm 01/19/17 4:24pm DEN[place], [facility] Discharged [place] 12/23/16 4:41pm 01/19/17 4:24pm DENNY, [facility] Discharged [place] 12/23/16 4:41pm 01/19/17 4:24pm DENNY, [facility] Discharged [place] 12/23/16 4:41pm 01/19/17 4:24pm DENNY, [facility] Discharged [place] 12/23/16 4:41pm 01/19/17 4:24pm DENNY, [facility] Discharged [place] 12/23/16 4:41pm 01/19/17 4:24pm DENNY, [facility] Discharged [place] 12/23/16 4:41pm 01/19/17 4:24pm DENNY, [facility] Discharged [place] 12/23/16 4:41pm 01/19/17 4:24pm DENNY, [facility] Discharged [place] 12/23/16 4:41pm 01/19/17 4:24pm DENNY, [facility] Registered [place] 12/28/16 11:06am DENNY, [facility] Discharged [place] 12/23/16 4:41pm 01/19/17 4:24pm DENNY, [facility] Discharged [place] 12/23/16 4:41pm 01/19/17 4:24pm DENNY, [facility] Discharged [place] 11/25/16 2:03pm 12/22/16 4:39pm DENNY, [facility] Discharged [place] 11/25/16 2:03pm 12/22/16 4:39pm DENNY, [facility] Discharged [place] 11/25/16 2:03pm 12/22/16 4:39pm DENNY, [facility] Discharged [place] 11/25/16 2:03pm 12/22/16 4:39pm DENNY, [facility] Discharged [place] 11/25/16 2:03pm 12/22/16 4:39pm DENNY, [facility] Discharged [place] 11/25/16 2:03pm 12/22/16 4:39pm DENNY, [facility] Discharged [place] 11/25/16 2:03[facility] [place] 11/25/16 2:03pm 12/22/16 4:39pm [facility] Discharged [place] 11/25/16 2:03pm 12/22/16 4:39pm [facility] Discharged [place] 11/25/16 2:03pm 12/22/16 4:39pm [facility] Discharged [place] 11/25/16 2:03pm [facility]/22[facility] [place] 11/25/16 2:03pm 12/22/16 4:39pm [facility] Registered [place] [facility] Encounter Diagnosis Onset Date Pneumonia Hypoxemia Hyponatremia CAD (coronary artery disease) Pacemaker HBP (high blood pressure) HLD (hyperlipidemia)
--- OUTSIDE RECORDS SUMMARY | 2017-09-24 15:50 | XMS | Continuity of Care Document ---
:1940 Author Organization [facility] Care Team Providers Name Role Phone Mai Carola Primary Care Physician Unavailable Insurance Providers Payer Name Policy Number Subscriber Name Relationship MEDICARE [id number] JOSSUE GOMEZ SELF/SAME PATIENT [facility] [id number] MAYA GOMEZ Advance Directives Directive Response Recorded Date/Time Advance Directive? N 08/10/16 8:23am Living Will? N 08/10/16 8:23am Health Care Proxy? N 08/10/16 8:23am Healthcare Power of Section Housekeeper? N 08/10/16 8:23am Is the patient an [...] Sodium (Synthroid 88 Mcg) 88 MCG TAB [place]-3 Fatty Acids 1,000 MG PO TWICE A [...] Mg Tab Tab, 1 Tab Po Hydrocodone-Acetaminophen ([place] 7.5 EVERY SIX HOURS NEEDED Unknown Discontinued Mg/325 Mg Tab) 7.5 Mg/325 Mg Tab PRN PAIN Tab, 1 Tab Po Lisinopril (Lisinopril 10 Mg Tab) 10 TWICE A DAY (0900; 2099) Unknown Discontinued Mg Tab Tab, 10 [...] discharge instructions. Plan of Care Discharge Date 08/19/16 Disposition [facility] Prescriptions See Medications Section Functional Status Query Response Date Recorded Speech Pattern: Intubated August 12, 2016 7:30pm Seizure Act.? N August 13, 2016 9:00am RUE Strength: Weak August 13, 2016 9:00am LUE Strength: Weak August 13, 2016 9:00am RLE Strength: Weak August 13, 2016 9:00am LLE Strength: Weak August 13, 2016 9:00am WNL?+ Y August 19, 2016 9:00am Person: N August 13, 2016 9:00am Place: [...] Vital Reading Collection Date/Time Result Blood Pressure 08/19/16 10:00am 138/65 Blood Pressure Source 08/19/16 10:00am Auto Cuff Patient Temperature 08/19/16 8:00am 98.2 Temperature Source 08/19/16 8:00am Core Respiratory Rate 08/19/16 10:00am 20 Pulse Rate 08/19/16 10:00am 63 Pulse Location 08/19/16 10:00am Monitor Bedside Pulse Oximetry 08/19/16 10:00am 97 Height 08/17/16 3:41pm 170.18 cm Height 08/17/16 3:41pm 5 ft 7.00 in Weight 08/19/16 6:05am 72.574 kg Weight 08/19/16 6:05am 159 lb 15.99 oz Body Mass Index 08/17/16 3:41pm 25.1 Results Laboratory Results Test Name Result Units Flags Reference Collection Result Comments Date/Time Date/Time Glucose 198 mg/dL H 70-109 08/19/16 08/19/16 (Fingerstick 11:44am 11:46am ) White Blood 13.6 K/uL H 4.8-10.8 08/19/16 08/19/16 Count 3:20am 4:15am Red Blood 3.80 M/uL 3.70-5.40 08/19/16 08/19/16 Count 3:20am 4:15am Hemoglobin 13.0 g/dL 12.0-16.0 08/19/16 08/19/16 3:20am 4:15am Hematocrit 38.4 % 37.0-47.0 08/19/16 08/19/16 3:20am 4:15am Mean 101.0 fl H 80.0-100.0 08/19/16 08/19/16 Corpuscular 3:20am 4:15am Volume Mean 34.3 pg H 27.0-31.0 08/19/16 08/19/16 Corpuscular 3:20am 4:15am Hemoglobin Mean 33.9 g/dL 32.0-36.0 08/19/16 08/19/16 Corpuscular 3:20am 4:15am Hgb Concent Diff Red Cell 14.3 % 11.5-14.5 08/19/16 08/19/16 Distribution 3:20am 4:15am Width Platelet 258 K/uL 130-400 08/19/16 08/19/16 Count 3:20am 4:15am Mean 8.4 fl 08/19/16 08/19/16 Platelet 3:20am 4:15am Volume Granulocytes 95.8 % H 50.0-75.0 08/19/16 08/19/16 (%) 3:20am 4:15am Lymphocytes 2.0 % L 20.0-40.0 08/19/16 08/19/16 % 3:20am 4:15am Monocytes % 2.0 % 0.0-15.0 08/19/16 08/19/16 3:20am 4:15am Eosinophils 0.0 % 0.0-10.0 08/19/16 08/19/16 % 3:20am 4:15am Basophils % 0.2 % 0.0-2.0 08/19/16 08/19/16 3:20am 4:15am Granulocytes 13.1 K/uL H 1.8-6.4 08/19/16 08/19/16 # 3:20am 4:15am Lymphocytes 0.3 K/uL L 1.2-3.6 08/19/16 08/19/16 # 3:20am 4:15am Monocytes # 0.3 K/uL 0.3-0.9 08/19/16 08/19/16 3:20am 4:15am Eosinophils 0.0 K/ul 0.0-0.5 08/19/16 08/19/16 # 3:20am 4:15am BASO # 0.0 K/uL 0.0-0.2 08/19/16 08/19/16 3:20am 4:15am Manual YES 08/19/16 08/19/16 Differential 3:20am 4:15am Segmented 93 % H 42-75 08/19/16 08/19/16 Neutrophils 3:20am 4:58am Lymphocytes 3 % L 20-51 08/19/16 08/19/16 3:20am 4:58am Monocytes 2 % 2-9 08/19/16 08/19/16 3:20am 4:58am Eosinophils 1 % 1-4 08/19/16 08/19/16 3:20am 4:58am Atypical 1 H NONE 08/19/16 08/19/16 Lymphocytes 3:20am 4:58am Platelet ADEQUATE ADEQUATE 08/19/16 08/19/16 Estimate 3:20am 4:58am Platelet GIANT NORMAL 08/19/16 08/19/16 Morphology PLATELETS 3:20am 4:58am SEEN Normal RBC SEE NORMAL 08/19/16 08/19/16 Morphology MORPHOLOGY 3:20am 4:58am Hypochromasi 1+ A NONE 08/19/16 08/19/16 a 3:20am 4:58am Sodium Level 138 mmol/L 135-144 08/19/16 08/19/16 3:20am 4:16am Potassium 3.8 mmol/L 3.5-5.1 08/19/16 08/19/16 Level 3:20am 4:16am Chloride 98 mmol/L L 101-111 08/19/16 08/19/16 Level 3:20am 4:16am Carbon 32 mmol/L 22-32 08/19/16 08/19/16 Dioxide 3:20am 4:16am Level Anion Gap 11.8 mmol/L 10-20 08/19/16 08/19/16 3:20am 4:16am Glucose 247 mg/dL H 70-109 08/19/16 08/19/16 Random glucose > 200 mg/dL in a patient with typical Level 3:20am 4:16am symptoms of diabetes (polydipsia, polyuria and unexplained weight loss) satisfies ADA criteria for diabetes mellitus if confirmed by repeat testing on another day. Confirmation is unnecessary when acute metabolic decompensation with hyperglycemia is manifested. Reference: Report of the Expert Committee on the Diagnosis and Classification of Diabetes Mellitus. Diabetes Care, 20:1183, 1997. Blood Urea 27 mg/dL H 8-26 08/19/16 08/19/16 Nitrogen 3:20am 4:16am Creatinine 0.80 mg/dL 0.44-1.00 08/19/16 08/19/16 3:20am 4:16am EGFR Note > 60.0 08/19/16 08/19/16 eGFR (Estimated Glomerular Filtration Rate) 3:20am 4:16am Reference Range: >60 ml/min/1.73m eGFR calculation value obtained using the [facility] Quadratic (MCQ) equation. The reportable reference range is recommended to be greater than 60 ml/min/1.73m. This is an estimation of the patient's GFR and clinical correlation is recommended. This eGFR calculation does not account for race. This result may differ from other equations available. Calcium 7.7 mg/dL L 8.9-10.3 08/19/16 08/19/16 Level 3:20am 4:16am Vancomycin 16 ug/mL H 10-15 08/18/16 08/19/16 Level Trough 10:57pm 0:19am Band 1 % L 2-10 08/17/16 08/17/16 Neutrophils 3:30am 5:28am Poikilocytos 1+ A NONE 08/17/16 08/17/16 is 3:30am 5:28am Anisocytosis 1+ A NONE 08/17/16 08/17/16 3:30am 5:28am Magnesium 2.1 mg/dL 1.8-2.5 08/17/16 08/17/16 Level 3:30am 4:15am Metamyelocyt 3 % H 0 08/16/16 08/16/16 es 7:16am 9:36am Phosphorus 3.4 mg/dL 2.5-4.6 08/16/16 08/16/16 Level 7:16am 8:19am Macrocytosis 1+ A NONE 08/15/16 08/15/16 3:40am 5:09am B-Type 307 pg/mL H 0-100 08/15/16 08/15/16 Natriuretic 3:40am 4:48am Peptide Random 11 ug/mL 08/14/16 08/14/16 Vancomycin 3:30am 8:35am Level N/A Negative Negative 08/12/16 08/18/16 Performed at: [facility] - [facility] 6:45am 8:32am [address], [place] [id number] Lock Expert: Ulises Mendoza MD, Phone: [phone] Performed at: [facility] - [facility] [address] [id number] Lock Expert: Андрей Hopson MD, Phone: [phone] Urine Negative Negative 08/12/16 08/16/16 Performed at: - [facility] Legionella 6:45am 5:50pm [address], [place] [id number] pneumophilia Lock Expert: Ulises Mendoza MD, Phone: [phone] Ag Aspergillus Negative Neg:<1:1 08/12/16 08/16/16 fumigatus 6:45am 5:50pm Antibody Aspergillus Negative Neg:<1:1 08/12/16 08/16/16 flavus 6:45am 5:50pm Antibody Aspergillus Negative Neg:<1:1 08/12/16 08/16/16 niger 6:45am 5:50pm Antibody Blastomyces Negative Neg:<1:1 08/12/16 08/16/16 Antibody 6:45am 5:50pm Coccidioides Negative Neg:<1:1 08/12/16 08/16/16 Antibody 6:45am 5:50pm Histoplasma Negative Neg:<1:1 08/12/16 08/16/16 Antibody 6:45am 5:50pm Cytoplasmic <1:20 titer Neg:<1:20 08/12/16 08/18/16 ANCA 6:45am 8:32am (c-ANCA) Antibody Perinuclear <1:20 titer Neg:<1:20 08/12/16 08/18/16 The presence of positive fluorescence exhibiting P-ANCA or ANCA 6:45am 8:32am C-ANCA patterns alone is not specific for the diagnosis of (p-ANCA) Keith's Granulomatosis (WG) or microscopic polyangiitis. Antibody Decisions about treatment should not be based solely on ANCA IFA results. The International ANCA Group Consensus recommends follow up testing of positive sera with both GA- 3 and MPO-ANCA enzyme immunoassays. As many as 5% serum samples are positive only by EIA. Ref. AM J Clin Pathol 1999;111:507-513. Atypical <1:20 titer Neg:<1:20 08/12/16 08/18/16 The atypical pANCA pattern has been observed in a p-ANCA 6:45am 8:32am significant percentage of patients with ulcerative colitis, primary sclerosing cholangitis and autoimmune hepatitis. Albumin 2.2 g/dL L 3.5-5.0 08/12/16 08/12/16 [...] H 0.0-1.0 08/11/16 08/11/16 Protein 1:25pm 5:57pm Influenza NEGATIVE NEGATIVE 08/11/16 08/11/16 A negative [...] Metapneumovirus Negative Negative Adenovirus Negative Negative 01 BN [facility] [address], [place] [address] Dir: Ulises Mendoza MD For inquiries, the physician may contact Branch: [phone] Lab: [phone] Urine Color YELLOW YELLOW 08/10/16 08/10/16 5:00pm 5:22pm Urine CLEAR CLEAR 08/10/16 08/10/16 Appearance 5:00pm 5:22pm Urine 250 mg/dL A NEGATIVE 08/10/16 08/10/16 Glucose 5:00pm 5:22pm Urine NEGATIVE NEGATIVE 08/10/16 08/10/16 Bilirubin 5:00pm 5:22pm Urine TRACE A NEGATIVE 08/10/16 08/10/16 Ketones 5:00pm 5:22pm Urine 1.020 1.002-1.03 08/10/16 08/10/16 Specific 0 5:00pm 5:22pm [place] Urine Blood LARGE A NEGATIVE 08/10/16 08/10/16 [...] Units: mOsmol/kg Osmolality 1:20pm 7:32am Performed at: [facility] [address] [address], [place], [place] [id number] Lock Expert: ARMIDA Davis MD, Phone: [phone] Thyroid 3.37 uIU/mL 0.34-5.6 08/10/16 08/10/16 Stimulating [...] Thrombosis and Antiphospholipid syndrome Prevention of recurrent PA Sixth ACCP Consensus Conference on Antithrombotic Therapy, [...] Arrival/Admit Date Discharge/Depart Date Attending Provider Discharged Gila 08/09/16 8:56pm 08/19/16 11:57am [facility]patient [facility] Discharged Gila 08/09/16 8:56pm 08/19/16 11:57am [facility], Emergency [facility] Registered Gila 08/03/16 1:31pm [facility] Registered Gila 07/21/16 12:48pm [facility] Reg[facility] Gila 06/30/16 7:46am [facility] Encounter Diagnosis Onset Date Pneumonia Hypoxemia Hyponatremia CAD (coronary artery disease) Pacemaker HBP (high blood pressure) HLD (hyperlipidemia)
--- OUTSIDE RECORDS SUMMARY | 2017-09-24 15:50 | XMS | Continuity of Care Document ---
:1940 Author Organization [facility] Care Team Providers Name Role Phone Carola Oneill Primary Care Physician Unavailable Insurance Providers Payer Name Policy Number Subscriber Name Relationship MEDICARE [id number] JOSSUE GOMEZ SELF/SAME PATIENT [facility] [id number] MAYA GOMEZ Advance Directives Directive Response Recorded Date/Time Advance Directive? N 03/22/17 5:16pm Living Will? N 03/22/17 5:16pm Health Care Proxy? N 03/22/17 5:16pm Healthcare Power of Braid Cutter? N 03/22/17 5:16pm Is the patient an Organ Donor? N 03/22/17 5:16pm Problems Active Medical Problems Problem Onset Date [...] (SYNTHROID 0.88 MG TAB) 88 MCG TAB [place]-3 Fatty Acids 1,000 MG PO TWICE A [...] Mg Tab Tab, 1 Tab Po Hydrocodone-Acetaminophen ([place] 7.5 EVERY SIX HOURS NEEDED Unknown Discontinued [...] 10MG) 10 Mg Tab TWICE A DAY (00; 2099) Unknown Discontinued Tab, 10 Mg Po [...] Arrival/Admit Date Discharge/Depart Date Attending Provider Discharged Thurman 02/22/17 8:21am 03/19/17 1:24pm [facility] Discharged Thurman 02/22/17 8:21am 03/19/17 1:24pm [facility] Discharged Thurman 02/22/17 8:21am 03/19/17 1:24pm [place], [facility] Discharged Thurman 02/22/17 8:21am 03/19/17 1:24pm [facility], [facility] Discharged Thurman 02/22/17 8:21am 03/19/17 1:24pm [facility], [facility] Discharged Thurman 02/22/17 8:21am 03/19/17 1:24pm [facility], [facility] Discharged Thurman 01/22/17 3:48pm 02/19/17 3:26pm [facility], [facility] Discharged Thurman 01/22/17 3:48pm 02/19/17 3:26pm [facility], [facility] Discharged Thurman 01/22/17 3:48pm 02/19/17 3:26pm [facility], [facility] Discharged Thurman 01/22/17 3:48pm 02/19/17 3:26pm [place], [facility] Discharged Thurman 01/22/17 3:48pm 02/19/17 3:26pm [facility], [facility] Discharged Thurman 01/22/17 3:48pm 02/19/17 3:26pm [facility], [facility] Discharged Thurman 01/22/17 3:48pm 02/19/17 3:26pm [facility], [facility] Discharged Thurman 01/22/17 3:48pm 02/19/17 3:26pm [facility], [facility] Discharged Thurman 12/23/16 4:41pm 01/19/17 4:24pm [facility], [facility] Discharged Thurman 12/23/16 4:41pm 01/19/17 4:24pm [facility], [facility] Discharged Thurman 12/23/16 4:41pm 01/19/17 4:24pm [facility], [facility] Discharged Thurman 12/23/16 4:41pm 01/19/17 4:24pm [facility], [facility] Discharged Thurman 12/23/16 4:41pm 01/19/17 4:24pm [facility] [place] [place] [facility] Thurman 12/23/16 4:41pm 01/19/17 4:24pm [facility] [place] [place] Discharged Thurman 12/23/16 4:41pm 01/19/17 4:24pm [facility] Discharged Thurman 12/23/16 4:41pm 01/19/17 4:24pm [facility] Discharged Thurman 12/23/16 4:41pm 01/19/17 4:24pm [facility] Registered Thurman 12/28/16 11:06am [facility] Discharged Thurman 12/23/16 4:41pm 01/19/17 4:24pm [facility] [place] [place] Encounter Diagnosis Onset Date Pneumonia Hypoxemia Hyponatremia CAD (coronary artery disease) Pacemaker HBP (high blood pressure) HLD (hyperlipidemia)
== END 2017-09-23 17:54 | disposition home or self-care (01) ==
LOC: SDC 12:43
PROVIDERS: ATTEND Ophthalmology Retina Specialist
PROC: 08953ZZ Drainage of Left Vitreous, Percutaneous Approach (ICD-10-PCS; principal; 2017-09-23)
DX: H27.132 Posterior dislocation of lens, left eye (principal); H43.392 Other vitreous opacities, left eye; E89.0 Postprocedural hypothyroidism; Z95.5 Presence of coronary angioplasty implant and graft; Z88.8 Allergy status to other drugs, medicaments and biological substances; Z79.899 Other long term (current) drug therapy; Z96.653 Presence of artificial knee joint, bilateral; Z90.89 Acquired absence of other organs; Z90.710 Acquired absence of both cervix and uterus; Z98.890 Other specified postprocedural states
CPT/HCPCS: J0171; J2001; J2250; J2405; J2704; J3010

== ENCOUNTER 2019-02-03 22:24 | Observation (INO) | payer MEDICARE, BC ==
[~2019-02-03 22:24] MED LIST changes: -Cyclopentolate 1% Opth Drop 2 ML BOT FS SCH; -EPINEPHrine 0.3 MG in Ophthalmic Irrigation Solution 500 ML FS SCH; +ISOVUE-370 76%-LOCM 1 ML ONE; -Phenylephrine 2.5% Ophth Soln 5 ML BOT FS SCH
[2019-02-03 22:58] LABS: #Basophils 0.1 thou/uL (0.0-0.2); #Eosinphils 0.2 thou/uL (0.0-0.7); #Lymphocytes 1.8 thou/uL (1.20-3.40); #Monocytes 0.7 thou/uL (0.11-0.59); #Neutrophils 3.5 thou/uL (1.40-6.50); %Basophils 1.3 % (0.0-1.0); %Eosinophils 3.7 % (0.0-10.0); %Lymphocytes 28.3 % (21.0-51.0); %Monocytes 11.3 % (0.0-10.0); %Neutrophils 55.5 % (42.0-75.0); Hemoglobin 14.5 g/dL (12.0-16.0); Mean Corpuscular HGB CONC 33.9 g/dL (32.0-36.0); Mean Corpuscular Hemoglobin 35.3 pg (27.0-31.0); Mean Platelet Volume 8.3 fL (7.4-10.4); Platelet Count 178 thou/uL (130-400); RBC Distribution Width 12.4 % (11.5-14.5); Red Blood Cell (RBC) Count 4.12 mill/uL (4.20-5.40); White Blood Cell (WBC) Count 6.3 thou/uL (4.8-10.8)
[2019-02-03 23:04] LABS: INR-International Normal Ratio 2.9; PTT 43.3 SEC (22.9-36.1); Prothrombin Time 30.5 SEC (12.0-14.7)
--- NOTE | 2019-02-03 23:08 | CT ---
CT BRAIN: 02/03/19 HISTORY: Difficulty speaking, word finding. Noncontrast enhanced CT images of the brain obtained on 02/03/19. COMPARISON: Comparison made to previous exam from 09/20/18. Noncontrast enhanced CT images of the brain demonstrate small old area of right basal ganglia infarct ion unchanged since the previous exam. No evidence of acute intracranial masses, hemorrhages, strokes or contusions seen. IMPRESSION: Normal CT brain with no evidence of acute abnormality seen. POS: [facility]
[2019-02-03 23:20] LABS: ALT (SGPT) 16 U/L (8-55); AST (SGOT) 17 U/L (5-34); Alkaline Phosphatase 81 U/L (40-150); Anion Gap 12 mmol/L (10-20); BUN (Urea Nitrogen) 18 mg/dL (9.8-20.1); Bilirubin, Total 0.7 mg/dL (0.2-1.2); Calc. Creatinine Clearance 0 mL/min (70-130); Calcium 9.4 mg/dL (7.8-10.44); Carbon Dioxide 22 mmol/L (23-31); Chloride 103 mmol/L (98-107); Estimated GFR-MDRD 60; Globulin 2.6 g/dL (2.4-3.5); Glucose 124 mg/dL (83-110); Protein, Total 6.6 g/dL (6.0-8.3); Sodium 133 mmol/L (136-145)
--- NOTE | 2019-02-03 23:25 | CT ---
CTA CAROTID AND INTRACRANIAL CTA: 02/03/19 Contrast enhanced CTA carotid and intracranial CTA performed. 2D and 3D reconstructed images performe d on independent 3D workstation. The aortic arch is calcified. The right brachiocephalic artery is pa tent. The right common carotid artery is tortuous. There is extensive atherosclerotic plaque seen in the distal right CCA extending to the right ICA res ulting in approximately 40% origin right ICA stenosis. More distally, the right ICA is patent. LEFT CAROTID: The left common carotid artery is tortuous without evidence of high grade stenosis. There is calcifie d plaque in the distal left CCA extending to the left ICA resulting in approximately 30% origin left ICA stenosis. More distally, the left ICA is patent. INTRACRANIAL CTA: There is normal flow seen in the right MCA and KRIS vessels. The anterior communicating artery is vila nt without evidence of aneurysms. The left supraclinoid ICA is patent. The left A1 and anterior cereb ral artery is patent. The left M1 segment of the middle cerebral artery is patent. The middle left M2 branch of the MCA has area of caliber reduction but has flow through it. This is concerning for proximal left M2 segment a lyudmila of partial clot. More distally, the left M3 branches are patent. The vertebral arteries and basilar artery is patent. The posterior cerebral arteries are patent. 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 Findings called to Dr. Xavier. He was unavailable. I spoke with his help desk assistant regarding this matter at 11:09 p.m. on 02/03/19. Code CR POS: [facility]
--- NOTE | 2019-02-03 23:41 | RAD ---
AP VIEW CHEST: 02/03/19 HISTORY: Difficulty speaking. Altered mental status. AP view chest is obtained on 02/03/19. AP view chest demonstrates intracardiac pacing device seen. Cardiomegaly seen. Pulmonary vasculature congestion seen. No evidence of effusions, pneumonia or pneumothorax seen. IMPRESSION: Cardiomegaly and pulmonary vascular congestion. POS: [facility]
[2019-02-04] MEDS ORDERED: Acetaminophen 325 MG TAB PO PRN (02:23)
[2019-02-04] MEDS ORDERED: Senokot S 8.6-50 MG TAB PO PRN (02:23)
[2019-02-04] MEDS ORDERED: HYDROcodone/Acetaminophen 5/325 mg Tablet PO PRN (02:23)
[2019-02-04 02:46] LABS: Troponin I Less than 0.010 ng/mL (< 0.028)
[2019-02-04 03:15] VITALS: BMI 24.3
--- NOTE | 2019-02-04 03:22 | HP ---
PRIMARY CARE PHYSICIAN: Carola Bazzi. CHIEF COMPLAINT: Difficulty speaking. HISTORY OF PRESENT ILLNESS: Ms. Denis is a 78-year-old female, presented to the emergency room for slurred speech and aphasia. Family reports the patient has had some difficulty speaking. reports that she sounded drunk, could not do the ABCs or form complete thoughts. The patient reports a headache and took Tylenol prior to arrival, which improved the headache. The patient's family reports that speech has improved, but is not back to her baseline. The patient reports a pertinent medical history of hypertension, atrial fibrillation, has a pacemaker, has had an ablation and multiple cardioversions. Also has a history of hypothyroidism, hyperlipidemia. The patient had a CT of the brain, which showed a normal CT brain with no evidence of acute abnormality. Also had a CTA of the neck and brain, which showed a partial occlusion of the left middle M2 branch of the middle cerebral artery. The patient is on Plavix and Xarelto for her history of atrial fibrillation and she has had 3 stents placed within the last year and half. ER physician discussed the case with Dr. Allen, neurosurgeon. He states that symptoms are resolving. He did not want to intervene at this time. The patient will be admitted to the stroke unit for further risk stratification, echocardiogram, neurology consult, and stroke team evaluation. PAST MEDICAL HISTORY: As above, coronary artery disease, myocardial infarction, atrial fibrillation, stent placement x3, pacemaker placement, hypothyroidism, hyperlipidemia, hypertension, ocular migraines. SURGICAL HISTORY: Cataracts, hysterectomy, bilateral knee replacement, thyroidectomy, tonsillectomy. PSYCHIATRIC HISTORY: None. SOCIAL HISTORY: Denies alcohol or drug use. Has no smoking history. KNOWN ALLERGIES: Amiodarone. CURRENT MEDICATIONS: 1. Levothyroxine 88 mcg once daily. 2. Losartan 50 mg once a day. 3. Plavix 75 mg p.o. once a day. 4. Coreg 25 mg p.o. b.i.d. 5. Xarelto 20 mg p.o. once a day. 6. Atorvastatin 40 mg once a day. 7. Detrol 2 mg once a day at bedtime. 8. Restasis one drop both eyes b.i.d. 9. Calcium plus D supplement b.i.d. 10. [place]-3 1000 mg b.i.d. REVIEW OF SYSTEMS: CONSTITUTIONAL: Denies chills or fever. EYES: Denies eye pain or vision changes. ENT: Denies rhinorrhea or sore throat. CARDIOVASCULAR: Denies chest pain or palpitations. RESPIRATORY: Denies any shortness of breath or cough. GI: Denies any abdominal pain, nausea, vomiting, diarrhea, or constipation. : Denies any dysuria or increased frequency. MUSCULOSKELETAL: Denies any back pain. Denies fall or injury. SKIN: Denies any rash or skin changes. NEUROLOGIC: Does report headache which is improving. Reports speech changes. HEMO/LYMPHATIC: Normal. All other systems reviewed and are negative unless mentioned in the HPI. PHYSICAL EXAMINATION: VITAL SIGNS: Blood pressure 162/92, pulse is 60, respirations 18, temp is 98, pulse ox is 95% on room air. CONSTITUTIONAL: The patient appears nontoxic, appears pain free. He is alert and oriented to person, place, and time. HEENT: Head is atraumatic and normocephalic. Eyes, pupils are equal, round, and reactive to light. Extraocular muscles are intact. No nystagmus. ENT; mouth exam is normal. Mucous membranes are moist. NECK: Trachea is midline. Normal range of motion. RESPIRATORY/CHEST: Breath sounds are clear. No findings of respiratory distress. CARDIOVASCULAR: Regular heart rate and rhythm. Heart sounds are normal. There is a pacemaker, left side chest wall. ABDOMEN: Nontender. Bowel sounds are heard. BACK: Normal range of motion. No tenderness. EXTREMITIES: Upper extremities, motor strength is normal, sensation intact, radial pulses are equal bilaterally. Lower extremities, normal range of motion, motor strength is normal, sensation intact, pedal pulses are equal bilaterally, no edema is noted. NEURO: The patient is oriented to person, place, and time. Speech is clear, although she does have some expressive aphasia with word-finding, is awake and alert. Follows commands. No facial droop is noted. SKIN: Warm, dry, normal in color. IMAGING: EKG in the ER shows rates per minute 61, conduction is normal, ST segments normal, T-waves normal, ventricularly paced. PERTINENT LABORATORY DATA: Sodium 133, potassium 4.0, chloride 103, carbon dioxide 22, gap is 12, BUN is 18, creatinine is 0.91, estimated GFR is 60, glucose is 124, calcium 9.4. Liver enzymes are unremarkable. PT is 30.5, INR is 2.9, and APTT is 43.3. Hematology; white blood cell count is 6.3, hemoglobin 14.5, hematocrit 42.8, platelet count is 178. ASSESSMENT AND PLAN: 1. Slurred speech. The patient with partial occlusion noted on the CTA. The patient is already anticoagulated on Plavix and Xarelto. We will admit to the stroke unit. Obtain an echocardiogram. Consult Neurology. Have stroke team evaluate. 2. Hypertension. We will trend. Restart home medications. 3. Hypothyroidism. We will restart home medications. Check a TSH. 4. Chronic anticoagulation. We will restart home medications. 5. Hyperlipidemia. We will restart her home medications. 6. GI prophylaxis will be started. The patient is already on anticoagulation, so no DVT prophylaxis is necessary. 7. Hospital course will be dependent on clinical findings. Job ID: [id number]
--- NOTE | 2019-02-04 03:35 | PRG ---
DATE OF SERVICE: 02/04/2019 This patient is a 78-year-old female, who presented via the emergency department. The patient has a history of some ocular migraines, and today, she had symptoms similar to that. However, she decided to check her blood pressure at a drugstore and it was systolic of significantly over 200. She also apparently had some dysarthria according to her family. She presented to the emergency department, where she had a stroke workup including a brain CT, which was normal, and a CT angiogram, which showed partial occlusion of the left M2 branch of the MCA; however, the patient's symptoms resolved in the emergency department and she is essentially back to baseline. Presently, the patient appears to be back to her baseline. She has normal speech and cognition and no subjective symptoms. She is already on Xarelto and Plavix as well as statin. She has a history of atrial fibrillation. She cannot have an MRI and further workup is limited given the fact that her symptoms have essentially resolved at this point. We will keep her overnight as observation. We will consult Neurology, PT, Speech Therapy, and continue to monitor the patient's neurological status and blood pressure. At this point, it looks to be more consistent with a TIA even with the findings on the CT scan and the patient is already on significant therapy without a lot to add at this point that may be beneficial. I reviewed the case in detail with Elina Samson and agreed with the treatment plan. Job ID: [id number] MTDD
[2019-02-04 05:16] LABS: Anion Gap 11 mmol/L (10-20); BUN (Urea Nitrogen) 14 mg/dL (9.8-20.1); Calc. Creatinine Clearance 56 mL/min (70-130); Calcium 9.3 mg/dL (7.8-10.44); Carbon Dioxide 29 mmol/L (23-31); Chloride 103 mmol/L (98-107); Estimated GFR-MDRD 64; Glucose 132 mg/dL (83-110); Potassium 4.7 mmol/L (3.5-5.1); Sodium 138 mmol/L (136-145)
[2019-02-04 05:22] LABS: Troponin I Less than 0.010 ng/mL (< 0.028)
[2019-02-04 05:23] LABS: #Basophils 0.1 thou/uL (0.0-0.2); #Eosinphils 0.2 thou/uL (0.0-0.7); #Lymphocytes 1.8 thou/uL (1.20-3.40); #Monocytes 0.7 thou/uL (0.11-0.59); #Neutrophils 3.4 thou/uL (1.40-6.50); %Eosinophils 3.6 % (0.0-10.0); %Lymphocytes 28.6 % (21.0-51.0); %Monocytes 11.7 % (0.0-10.0); %Neutrophils 55.1 % (42.0-75.0); Hemoglobin 13.5 g/dL (12.0-16.0); Mean Corpuscular HGB CONC 33.9 g/dL (32.0-36.0); Mean Corpuscular Hemoglobin 35.7 pg (27.0-31.0); Mean Platelet Volume 8.4 fL (7.4-10.4); Platelet Count 166 thou/uL (130-400); RBC Distribution Width 12.5 % (11.5-14.5); Red Blood Cell (RBC) Count 3.79 mill/uL (4.20-5.40); White Blood Cell (WBC) Count 6.2 thou/uL (4.8-10.8)
[2019-02-04] MEDS: Levothyroxine Sodium 88 MCG TAB PO SCH (06:26)
[2019-02-04] MEDS: Rivaroxaban 10 MG TAB PO SCH (08:43)
[2019-02-04] MEDS: Calcium Carbonate + Vit D 1 TAB PO SCH ×2 (08:43→20:45)
[2019-02-04] MEDS: Famotidine 20 MG TAB PO SCH ×2 (08:43→20:45)
[2019-02-04] MEDS: Losartan 25 MG TAB PO SCH (08:43)
[2019-02-04] MEDS: Trospium 20 MG TAB PO SCH ×2 (08:43→20:45)
[2019-02-04] MEDS: Fish Oil 1,000 MG CAP PO SCH ×2 (08:43→20:45)
[2019-02-04] MEDS: Clopidogrel Bisulfate 75 MG TAB PO SCH (08:44)
[2019-02-04] MEDS: Carvedilol 25 MG TAB PO SCH ×2 (08:44→17:30)
[2019-02-04] MEDS: Atorvastatin Calcium 40 MG TAB PO SCH (08:44)
[2019-02-04] MEDS: cycloSPORINE 0.05% Ophthalmic Droperette EA EYE SCH ×2 (08:45→20:45)
[2019-02-04 11:39] LABS: Cardiac Risk 2.9 (Less than 4.5)
--- NOTE | 2019-02-04 14:22 | PDOC.PN ---
- Subjective Encounter Start Date: 02/04/19 Encounter Start Time: 10:15 Subjective: speech has cleared up and is normal now -: no weakness in any extremities, is amb in room -: at bedside - Objective MAR Reviewed: Yes Vital Signs & Weight: Vital Signs (12 hours) Temp Pulse Pulse Pulse Resp BP BP 02/04/19 11:24 98.2 F 60 18 02/04/19 09:53 60 60 168/91 H 156/81 H 02/04/19 07:36 98.0 F 60 18 02/04/19 04:00 97.5 F L 61 16 02/04/19 02:23 97.5 F L 59 L 18 BP Pulse Ox 02/04/19 11:24 145/78 H 97 02/04/19 09:53 02/04/19 07:36 150/94 H 97 02/04/19 04:00 178/80 H 97 02/04/19 02:23 186/95 H 97 Weight Weight 148 lb 4.8 oz I&O: 02/03/19 02/04/19 02/05/19 06:59 06:59 06:59 Intake Total 50 Balance 50 Result Diagrams: 02/04/19 04:37 02/04/19 04:37 Additional Labs: Accuchecks 02/03/19 22:43 POC Glucose 121 H Phys Exam - Physical Examination HEENT: PERRLA, moist MMs Neck: no JVD, supple Respiratory: no wheezing, no rales Cardiovascular: RRR, no significant murmur Gastrointestinal: soft, non-tender, no distention, positive bowel sounds Musculoskeletal: no edema, pulses present Neurological: non-focal, moves all 4 limbs Psychiatric: normal affect, A&O x 3 Dx/Plan (1) TIA (transient ischemic attack) Code(s): G45.9 - TRANSIENT CEREBRAL ISCHEMIC ATTACK, UNSPECIFIED Status: Acute (2) Afib Code(s): I48.91 - UNSPECIFIED ATRIAL FIBRILLATION Status: Chronic Qualifiers: Atrial fibrillation type: chronic Qualified Code(s): I48.2 - Chronic atrial fibrillation (3) CAD (coronary artery disease) Code(s): I25.10 - ATHSCL HEART DISEASE OF [place] CORONARY ARTERY W/O ANG PCTRS Status: Chronic Qualifiers: Coronary Disease-Associated Artery/Lesion type: [place] artery [place] vs. transplanted heart: [place] heart Associated angina: without angina Qualified Code(s): I25.10 - Atherosclerotic heart disease of [place] coronary artery without angina pectoris Comment: has 3 stents (4) Cardiomyopathy Code(s): I42.9 - CARDIOMYOPATHY, UNSPECIFIED Status: Chronic Qualifiers: Cardiomyopathy type: ischemic Qualified Code(s): I25.5 - Ischemic cardiomyopathy (5) Dyslipidemia Code(s): E78.5 - HYPERLIPIDEMIA, UNSPECIFIED Status: Chronic (6) Hypothyroidism Code(s): E03.9 - HYPOTHYROIDISM, UNSPECIFIED Status: Chronic Qualifiers: Hypothyroidism type: unspecified Qualified Code(s): E03.9 - Hypothyroidism , unspecified (7) Pacemaker Code(s): Z95.0 - PRESENCE OF CARDIAC PACEMAKER Status: Chronic - Plan hemo/neurostable -: await neuro opinion -: transthoracic echo shows no thrombus -: cta reveals M2 segment partial obstr, no thrombectomy per -: dc plan per neuro adv, she will have close f/u with her cardio in 1 week. * . is on plavix, coreg, cozaar, xarelto, lipitor, fish oil and synthroid. D/w patient and at bedside. Review of Systems - Medications/Allergies Allergies/Adverse Reactions: Allergies Allergy/AdvReac Type Severity Reaction Status Date / Time amiodarone Allergy Severe Anaphylaxis Verified 02/04/19 03:17 Medications: Current Medications Acetaminophen (Tylenol) 650 mg PO Q4H PRN PRN Reason: Headache/Fever/Mild Pain (1-3) Hydrocodone Bitart/Acetaminophen ([place] 5/325) 1 tab PO Q4H PRN PRN Reason: Moderate Pain (4-6) Atorvastatin Calcium (Lipitor) 40 mg PO DAILY [facility] Last Admin: 02/04/19 08:44 Dose: 40 mg Calcium/Vitamin D (Caltrate 600 + Vit D) 1 tab PO BID [facility] Last Admin: 02/04/19 08:43 Dose: 1 tab Carvedilol (Coreg) 25 mg PO BID[facility] Last Admin: 02/04/19 08:44 Dose: 25 mg Clopidogrel Bisulfate (Plavix) 75 mg PO DAILY [facility] Last Admin: 02/04/19 08:44 Dose: 75 mg Cyclosporine (Restasis) 0.4 ml EA EYE BID [facility] Last Admin: 02/04/19 08:45 Dose: 0.4 ml Famotidine (Pepcid) 20 mg PO BID [facility] Last Admin: 02/04/19 08:43 Dose: 20 mg Fish Oil (Fish Oil) 1,000 mg PO BID [facility] Last Admin: 02/04/19 08:43 Dose: 1,000 mg Levothyroxine Sodium (Synthroid) 88 mcg PO 0600 [facility] Last Admin: 02/04/19 06:26 Dose: 88 mcg Losartan Potassium (Cozaar) 50 mg PO DAILY [facility] Last Admin: 02/04/19 08:43 Dose: 50 mg Rivaroxaban (Xarelto) 20 mg PO DAILY [facility] Last Admin: 02/04/19 08:43 Dose: 20 mg Senna/Docusate Sodium (Senokot S) 2 tab PO BID PRN PRN Reason: Constipation Sodium Chloride (Flush - Normal Saline) 10 ml IVF PRN PRN PRN Reason: Saline Flush Trospium (Trospium) 20 mg PO BID [facility] Last Admin: 02/04/19 08:43 Dose: 20 mg
--- NOTE | 2019-02-04 19:25 | CON ---
DATE OF TELEMEDICINE CONSULTATION: 02-04-19 DIGITAL ASSET MANAGER : EVON CHIEF COMPLAINT: Aphasia. HISTORY OF PRESENT ILLNESS: The patient is a 78-year-old lady, who reports that yesterday they were with a grandson. [facility] and she could not make sentences. She was able to think of the word, but could not say it. This lasted for 1 hour. Her blood pressure was 207/90 and family brought her right away to the emergency room. The patient has migraine headaches and associated with migraine, she has kind of loss of peripheral vision and difficulty with talking. Her migraine is usually bifrontal and bitemporal and her last migraine was 5 to 6 years ago and she usually has vomiting with the headache along with photophobia and this time, she had a headache since last night after arrival to the hospital. She did not have any sensory symptoms or weakness in her extremities. PREVIOUS MEDICAL HISTORY: Positive for hypertension, cardiac issues including prior history of cardiac dysrhythmia with cardiac ablation and pacemaker placement and she has atrial fibrillation, coronary artery disease with three stents, hypothyroidism, hyperlipidemia, hypertension, and ocular migraine. She had Fay thyroiditis 40 years ago. PAST SURGICAL HISTORY: She had cataract surgery, hysterectomy, bilateral knee replacement, thyroidectomy, tonsillectomy, and pacemaker implantation. FAMILY HISTORY: Mother at 57 following coronary artery disease. Father at 97 due to aging. Her brother had CVA. Sister is four years younger than her and has Parkinson disease for the last 10 years. She has been on hospice with dementia. SOCIAL HISTORY: The patient does not drink alcohol. 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 ALLERGIES: AMIODARONE CAUSES SIDE EFFECTS, AND ANOTHER SIDE EFFECT WITH ASPIRIN WAS SHE WAS PLAYING TENNIS AND SHE BLED IN THE MUSCLE FROM GROIN TO HER KNEES AND SHE HAD A HEMATOMA AND HER PRIMARY CARE DOCTOR STOPPED HER ASPIRIN. CURRENT WORKUP: Her laboratory workup; white count 6.2, hemoglobin 13.5, hematocrit 39.9, and platelet count 166. PT 30.5, INR 2.9, and PTT 43.3. Sodium 138, potassium 4.7, chloride 103, BUN is 14, creatinine 0.86, glucose 132, and her bicarb is 29. Triglycerides 42, cholesterol 174, LDL 106, and HDL 60. Heart disease risk ratio 2.9, and her MRI cannot be done due to her pacemaker. CT angio of the brain was completed on 02/03 and it showed partial occlusion of left M2 branch of the middle cerebral artery and she has area of caliber reduction, but there is some slow. There is concern for proximal left M2 segment area of partial clot. Left M3 branches are patent. Normal flow in the right MCA and KRIS vessels. Calcified plaque in the distal left common carotid extending into left ICA with 30% origin left ICA stenosis. More distally ICA is patent. Echocardiogram report is pending. REVIEW OF SYSTEMS: PULMONARY: Negative. CARDIAC: Positive for cardiac dysrhythmia. GI: Negative for vomiting or nausea or diarrhea. NEUROLOGIC: Positive for word-finding difficulties and migraine. HEMATOLOGIC: Positive for bleeding with aspirin in the past. DERMATOLOGIC: Negative for a rash. PHYSICAL EXAMINATION: VITAL SIGNS: Blood pressure 122/66, temperature 98.7, pulse is 74, respiratory rate 18, and O2 saturations 94%. GENERAL APPEARANCE: Well-built, well-nourished lady, who is in good spirits. CHEST: Clear vesicular breathing. CARDIOVASCULAR: S1, S2 heard. No murmurs. ABDOMEN: Soft and nontender. NEUROLOGIC: Higher intellectual functions normal. Normal orientation to time, place, and person. Cranial nerves 2 through 12 normal. Pupils are 2 mm, reactive. Normal extraocular movements. Normal sensation of face bilaterally. No facial asymmetry noted. Normal hearing bilaterally and tongue midline. No atrophy noted. Normal elevation of palate. Motor bulk normal. Tone normal. Strength 5/5 in upper and lower extremities in iliopsoas, hamstrings, quadriceps, ankle dorsiflexion, plantar flexion, deltoid, biceps, triceps, wrist extension, flexion, finger extension and flexion bilaterally. Sensory normal touch, normal to touch bilaterally. Tendon cerebellar normal [id number]. IMPRESSION AND PLAN: The patient is a 78-year-old lady with word-finding difficulties and mild aphasia, which lasted about an hour without any associated weakness or numbness. She has not had a prior stroke, but she has a significant cardiac issue including cardiac dysrhythmia and is currently on a pacemaker. Her CT angiogram is significant for left M2 blockage. We are unable to get an MRI. I suspect she might have had a TIA in the left M2 distal M1 distribution at this time. Her neurological exam is normal. However, due to her cardiac risk factors, I wonder if we can have aspirin to the nacho. Also, which she is currently taking recommendations please consult Cardiology to see if we can add aspirin to her current medication regimen along with statin and Plavix to be decreased and change from Xarelto to another agent to decrease future embolic risk. I will follow up with you tomorrow. Job ID: [id number] MTDD
[2019-02-05 04:47] VITALS: TEMP 97.8
[2019-02-05] MEDS: Levothyroxine Sodium 88 MCG TAB PO SCH (05:57)
[2019-02-05 07:31] VITALS: BP 134/76
[2019-02-05] MEDS: Carvedilol 25 MG TAB PO SCH (09:40)
[2019-02-05] MEDS: Atorvastatin Calcium 40 MG TAB PO SCH (09:40)
[2019-02-05] MEDS: Clopidogrel Bisulfate 75 MG TAB PO SCH (09:40)
[2019-02-05] MEDS: Calcium Carbonate + Vit D 1 TAB PO SCH (09:40)
[2019-02-05] MEDS: Famotidine 20 MG TAB PO SCH (09:41)
[2019-02-05] MEDS: Rivaroxaban 10 MG TAB PO SCH (09:41)
[2019-02-05] MEDS: Trospium 20 MG TAB PO SCH (09:41)
[2019-02-05] MEDS: cycloSPORINE 0.05% Ophthalmic Droperette EA EYE SCH (09:41)
[2019-02-05] MEDS: Losartan 25 MG TAB PO SCH (09:41)
[2019-02-05] MEDS: Fish Oil 1,000 MG CAP PO SCH (09:41)
--- NOTE | 2019-02-05 11:50 | PRG ---
DATE OF TELEMEDICINE SERVICE: 02/05/2019 CHROME PLATER HELPER: EVON CHIEF COMPLAINT: TIA with aphasia. INTERVAL HISTORY: The patient has done well. She is ready to go home and she would like to see her micro[employer] dynamics ax consultant as outpatient and I had a conversation with Dr. Clark and the patient is planned for discharge with Cardiology followup, so they can perform further echo evaluation and she will be started back on Eliquis. CURRENT LABORATORY WORKUP: White count 6.2, hemoglobin 13.5, hematocrit 39.9, platelet count 166. Sodium 138, potassium 4.7, chloride 103, bicarb 29, BUN 14, creatinine 0.86, triglycerides 42, cholesterol 174, LDL 106, HDL 60. PHYSICAL EXAMINATION: GENERAL APPEARANCE: Well-built and well-nourished lady. VITAL SIGNS: Temperature 97.8, pulse 61, respiratory rate 16, O2 sats 95%, blood pressure 134/76. CHEST: Clear vesicular breathing. CARDIOVASCULAR: S1, S2 heard. No murmurs. NEUROLOGIC: Higher intellectual functions. Normal orientation to time, place, and person. Appropriate conversation. Cranial nerves, normal extraocular movements. Tongue midline. No atrophy noted. Normal elevation of palate. No facial asymmetry. Motor exam, bulk normal, tone normal. Strength 5/5 in both upper and lower extremities. IMPRESSION: The patient with a transient ischemic attack with expressive aphasia, which has completely resolved at this time. Her workup has also been completed except for her echocardiogram and she is known to have multiple cardiac risk factors. At this time, plan is to change her from Xarelto to Eliquis and she will be seeing her microsoft dynamics ax consultant this coming week. I agreed with Dr. Clark that it is okay to discharge this patient to her home. Job ID: [id number] MTDD
--- NOTE | 2019-02-05 12:02 | PDOC.PN ---
- Subjective Encounter Start Date: 02/05/19 Encounter Start Time: 08:30 Subjective: is amb and feels good -: no weakness, speech is normal -: family at bedside - Objective MAR Reviewed: Yes Vital Signs & Weight: Vital Signs (12 hours) Temp Pulse Resp BP Pulse Ox 02/05/19 07:30 97.8 F 61 16 134/76 95 02/05/19 04:00 97.8 F 62 16 126/74 97 Weight Weight 151 lb 8 oz I&O: 02/04/19 02/05/19 02/06/19 06:59 06:59 06:59 Intake Total 50 1100 300 Balance 50 1100 300 Result Diagrams: 02/04/19 04:37 02/04/19 04:37 Phys Exam - Physical Examination HEENT: PERRLA, moist MMs Neck: no JVD, supple Respiratory: no wheezing, no rales Cardiovascular: RRR, no significant murmur Gastrointestinal: soft, non-tender, positive bowel sounds Musculoskeletal: no edema, pulses present Neurological: non-focal, moves all 4 limbs Psychiatric: normal affect, A&O x 3 Dx/Plan (1) TIA (transient ischemic attack) Code(s): G45.9 - TRANSIENT CEREBRAL ISCHEMIC ATTACK, UNSPECIFIED Status: Resolved (2) Afib Code(s): I48.91 - UNSPECIFIED ATRIAL FIBRILLATION Status: Chronic Qualifiers: Atrial fibrillation type: chronic Qualified Code(s): I48.2 - Chronic atrial fibrillation (3) CAD (coronary artery disease) Code(s): I25.10 - ATHSCL HEART DISEASE OF [place] CORONARY ARTERY W/O ANG PCTRS Status: Chronic Qualifiers: Coronary Disease-Associated Artery/Lesion type: [place] artery [place] vs. transplanted heart: [place] Associated angina: without angina Qualified Code(s): I25.10 - Atherosclerotic heart disease of [place] coronary artery without angina pectoris Comment: has 3 stents (4) Cardiomyopathy Code(s): I42.9 - CARDIOMYOPATHY, UNSPECIFIED Status: Chronic Qualifiers: Cardiomyopathy type: ischemic Qualified Code(s): I25.5 - Ischemic cardiomyopathy (5) Dyslipidemia Code(s): E78.5 - HYPERLIPIDEMIA, UNSPECIFIED Status: Chronic (6) Hypothyroidism Code(s): E03.9 - HYPOTHYROIDISM, UNSPECIFIED Status: Chronic Qualifiers: Hypothyroidism type: unspecified Qualified Code(s): E03.9 - Hypothyroidism , unspecified (7) Pacemaker Code(s): Z95.0 - PRESENCE OF CARDIAC PACEMAKER Status: Chronic - Plan d/w neuro, switch xarelto to eliquis -: no asp due to prior h/o extensive echymosis in addition to plavix -: pt will f/u with her admissions assistant in 3-4 days -: hemo/neurostable -: dc pt home, d/w , 4 children and patient at bedside * .
--- NOTE | 2019-02-06 07:47 | DIS ---
DATE OF ADMISSION: 02/04/2019 DATE OF DISCHARGE: 02/05/2019 DISCHARGE DISPOSITION: To home. PRIMARY DISCHARGE DIAGNOSIS: Transient ischemic attack, completely resolved. SECONDARY DISCHARGE DIAGNOSES: History of atrial fibrillation, pacemaker; coronary artery disease with prior stents x3; cardiomyopathy; dyslipidemia; and hypothyroidism. PROCEDURES DONE DURING HOSPITALIZATION: Echo with 2D Doppler done showed an EF of 40% to 45%, moderately enlarged right atrium, mildly dilated left atrium, moderately enlarged RV cavity, severe tricuspid regurgitation. No thrombus was seen in the cardiac chambers. CT of brain without contrast showed no acute abnormality. CT angio of brain showed partial occlusion of the left middle M2 branch of middle cerebral artery. Chest x-ray done showed cardiomegaly with mild pulmonary vascular congestion. H and H 13 and 39, platelet count 166, and MCV is 105. INR 2.9 and PTT 43. Total cholesterol 174, triglycerides 42, LDL 106, and HDL 60. Troponin x3 negative. BUN 14 and creatinine 0.8. INPATIENT CONSULT: Dr. Gely Emanuel for Neurology. DISCHARGE MEDICATIONS: 1. Plavix 75 mg p.o. daily. 2. Lipitor 40 mg p.o. daily. 3. Coreg 25 mg p.o. twice daily. 4. Eliquis 5 mg p.o. twice daily. 5. Detrol LA 2 mg p.o. daily. 6. [place]-3 fatty acid one capsule twice daily. 7. Cozaar 50 mg p.o. daily. 8. Levothyroxine 88 mcg p.o. daily. ALLERGIES: ALLERGIC TO AMIODARONE. DISCHARGE PLAN: The patient to follow up with her commissary assistant in 3 to 4 days. She also needs to follow up with her primary care physician in 1 week. BRIEF COURSE DURING HOSPITALIZATION: The patient initially was brought to emergency room for slurred speech and difficulty finding words while communicating. She has had CT angio of brain done, which showed partial occlusion of M2 branch of middle cerebral artery. The patient was on Xarelto and Plavix prior to arrival here. She has had known history of atrial fibrillation and has had prior ablations and placement of permanent pacemaker to increase AV navneet blockers. In view of this history, she has had consultations with Dr. Gely Emanuel for Neurology. Ms. Adeel Arvizu's slurred speech completely resolved. She has been ambulating on the floor. She is tolerating oral solid diet. Her Xarelto was switched over to Eliquis. The patient cannot tolerate aspirin in addition to Plavix and NOAC with prior history of extensive ecchymosis in the thigh area. In view of this, she was not placed on aspirin. She needs to continue Plavix and Eliquis. The patient has had transthoracic echo done, which has not revealed any obvious thrombus. The patient has a commissary assistant and an sheet cutting operator that she follows in [facility]. She would like to see her commissary assistant in the next 2 to 3 days and have further procedures if needed including transesophageal echo. She is otherwise hemodynamically and neurologically stable and has been cleared by Neurology for discharge. Please see a [id number] documentation for the day of discharge on [facility]. Job ID: [id number] [facility]
--- NOTE | 2019-02-11 15:27 | EKG ---
Test Reason : Blood Pressure : / mmHG Vent. Rate : 061 BPM Atrial Rate : 052 BPM P-R Int : 000 ms QRS Dur : 168 ms QT Int : 508 ms P-R-T Axes : 000 -57 135 degrees QTc Int : 511 ms Electronic ventricular pacemaker Confirmed by ZE TOMPKINS M.D. ([id number]), editor farm journal RADHA ZARATE ([id number]) on 02/11/2019 3:26:30 PM Referred By: Confirmed By:ZE TOMPKINS M.D.
--- NOTE | 2019-02-15 13:12 | CT ---
CTA CAROTID AND INTRACRANIAL CTA: 02/03/19 Contrast enhanced CTA carotid and intracranial CTA performed. 2D and 3D reconstructed images performe d on independent 3D workstation. The aortic arch is calcified. The right brachiocephalic artery is pa tent. The right common carotid artery is tortuous. There is extensive atherosclerotic plaque seen in the distal right CCA extending to the right ICA res ulting in approximately 40% origin right ICA stenosis. More distally, the right ICA is patent. LEFT CAROTID: The left common carotid artery is tortuous without evidence of high grade stenosis. There is calcifie d plaque in the distal left CCA extending to the left ICA resulting in approximately 30% origin left ICA stenosis. More distally, the left ICA is patent. INTRACRANIAL CTA: There is normal flow seen in the right MCA and KRIS vessels. The anterior communicating artery is vila nt without evidence of aneurysms. The left supraclinoid ICA is patent. The left A1 and anterior cereb ral artery is patent. The left M1 segment of the middle cerebral artery is patent. The middle left M2 branch of the MCA has area of caliber reduction but has flow through it. This is concerning for proximal left M2 segment a lyudmila of partial clot. More distally, the left M3 branches are patent. The vertebral arteries and basilar artery is patent. The posterior cerebral arteries are patent. 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 Findings called to Dr. Xavier. He was unavailable. I spoke with his instruction assistant principal regarding this matter at 11:09 p.m. on 02/03/19. Code CR
== END 2019-02-05 11:51 | disposition home or self-care (01) ==
LOC: ERS 22:24 → INTOOBSV 02-04 00:10 → 2SE 02-04 00:10 → OBSVTOIN 02-04 00:10
PROVIDERS: ADMIT Internal Medicine; ATTEND Internal Medicine
DX: G45.9 Transient cerebral ischemic attack, unspecified (principal); I10 Essential (primary) hypertension; E03.9 Hypothyroidism, unspecified; E78.5 Hyperlipidemia, unspecified; I66.9 Occlusion and stenosis of unspecified cerebral artery; I25.10 Atherosclerotic heart disease of native coronary artery without angina pectoris; I25.2 Old myocardial infarction; G43.809 Other migraine, not intractable, without status migrainosus; I48.2 Chronic atrial fibrillation; I25.5 Ischemic cardiomyopathy; Z79.01 Long term (current) use of anticoagulants; Z79.02 Long term (current) use of antithrombotics/antiplatelets; Z88.8 Allergy status to other drugs, medicaments and biological substances; Z95.0 Presence of cardiac pacemaker; Z95.5 Presence of coronary angioplasty implant and graft; Z98.890 Other specified postprocedural states
CPT/HCPCS: 70450; 70496; 70498; 71045; 80048; 80053; 80061; 82962; 84484 ×3; 85025 ×2; 85610; 85730; 93005; 93306; 97139 ×3; 99291; G0378; 36415; 36416; Q9966